=== PATIENT | female | born 1980 | race African-American/Black ===

== ENCOUNTER 2018-11-26 23:02 | Emergency (ER) | payer MEDICAID ==
[~2018-11-26] VITALS: Ht 167.6 cm; Wt 70.0 kg
[~2018-11-26 23:02] MED LIST: DIVA500T3 PO
[2018-11-27 01:26] VITALS: BP 134/86
[2018-11-27] MEDS ORDERED: DEXAMETHASONE 4MG/ML 1ML VIAL IV ONE (03:15)
== END 2018-11-27 04:15 | disposition home or self-care (01) ==
LOC: ER 23:02
DX: T38.0X5A Adverse effect of glucocorticoids and synthetic analogues, initial encounter (principal); H02.845 Edema of left lower eyelid; H02.844 Edema of left upper eyelid; H02.842 Edema of right lower eyelid; H02.841 Edema of right upper eyelid; F10.10 Alcohol abuse, uncomplicated; F17.200 Nicotine dependence, unspecified, uncomplicated; F41.3 Other mixed anxiety disorders; F32.9 Major depressive disorder, single episode, unspecified; F31.9 Bipolar disorder, unspecified; Z98.890 Other specified postprocedural states; Z79.899 Other long term (current) drug therapy; Y92.89 Other specified places as the place of occurrence of the external cause; Y90.9 Presence of alcohol in blood, level not specified
CPT/HCPCS: 96374; 99283; J1100